=== PATIENT | female | born 1945 | race Caucasian/White ===

== ENCOUNTER → 2018-12-19 | Outpatient (CLI) | payer OTHER, MEDICARE ==
[~2018-12-19] VITALS: Ht 160 cm; Wt 58.5 kg
[~2018-12-19] MED LIST: ATORVASTATIN CA40 MG PO; B COMPLEX1 EACH PO; FISH OIL 1,001000 M2 PO; GLUCOSAMINE HC500 MG PO; LIPITOR 20 MG T20 M1 PO; MOBIC7.5 MG PO; NORVASC5 MG PO; ONE-A-DAY WOMENS PO; OSTEO BI-FLEX1 EAC1 PO; TUMS PO; TURMERIC500 M2 PO; VALACYCLOVIR500 MG PO; VITAMIN D-32000 UNIT PO; VITAMINC500 PO
--- NOTE | ~2018-12-19 | P ---
[facility] [place] [address] PROCEDURE REPORT Name: LONG CONCEPCION Room #: REG JACKSON Nair#: [id number] Admission: 12/19/18 ������������������ Attend Phys: Bipin Wellington Discharge: ������������������ Date of : 41 Report #: [id number] THIS REPORT FOR: //name// CC: Bipin Apple MD DATE OF SERVICE: 12/19/2018 PROCEDURE PERFORMED: Upper endoscopy with biopsies and esophageal dilation. HISTORY OF PRESENT ILLNESS: The patient is a 73-year-old female with recurrent dysphagia. Last upper endoscopy with dilation was performed by myself in 11/2015, which was helpful. She is beginning to have high dysphagia again. She also presents today for routine screening colonoscopy. She has a family history of colon cancer in her father. She does report heartburn at times, takes Tums on a p.r.n. basis. DESCRIPTION OF PROCEDURE: The risks and benefits of the procedure were explained to the patient, those risks including but not limited to bleeding, perforation and the risk of sedation. She understood these risks and gave informed consent. Sedation was given using propofol per anesthesia. Next, using a standard Olympus upper endoscope, the scope was placed in the patient's mouth and advanced under direct vision through the esophagus, stomach and into the second portion of the duodenum. The upper and mid esophagus was normal in appearance. In the distal esophagus at the GE junction, mild grade A erosive esophagitis was noted. The gastric fundus was normal. A mild gastritis was noted in the gastric body and antrum. Biopsies were obtained to rule out H. pylori. The pylorus was normal and patent. The duodenal bulb and first portion were normal. However, several superficial ulcers were noted in the second portion of the duodenum. No evidence of bleeding. The scope was then brought back up into the patient's stomach and a Savary guidewire was inserted through the scope, leaving the guidewire in place as the scope was then withdrawn. Next, a 48-Georgian Savary dilation of the esophagus was then performed without difficulty. The wire and dilator removed. The scope was reintroduced into the patient's stomach. There was no evidence of mucosal tear after dilation. The scope was then withdrawn and the procedure terminated. The patient tolerated the procedure well. IMPRESSION: 1. Grade A erosive esophagitis. 2. Mild gastritis. 3. Superficial duodenal ulcers. RECOMMENDATIONS: 1. Await biopsy results. [address] [address] PROCEDURE REPORT Name: LONG CONCEPCION Ewa Room #: REG CL Korey#: [id number] Admission: 12/19/18 ������������������ Attend Phys: Bipin Wellington Discharge: ������������������ Date of : 41 Report #: [id number] 2. Observe the patient post-dilation. 3. Would recommend daily PPI therapy. Thank you for allowing me to participate in her care. ��������������������������������������������� ���������������������������������������� By: ��������������������������������������������� 1209 [id number] Bipin Wall MD /kami
--- NOTE | ~2018-12-19 | P ---
[facility] [place] [address] PROCEDURE REPORT Name: LONG CONCEPCION [id number] Admission: 12/19/18 ������������������ Attend Phys: Bipin Wellington Discharge: ������������������ Date of : 41 Report #: [id number] THIS REPORT FOR: //name// CC: Bipin Apple MD DATE OF SERVICE: 12/19/2018 PROCEDURE PERFORMED: Colonoscopy. HISTORY OF PRESENT ILLNESS: The patient is a 73-year-old female here for routine followup colonoscopy screening. She denies any symptoms. She does have a family history of colon cancer in her father. DESCRIPTION OF PROCEDURE: The risks and benefits of the procedure were explained to the patient, those risks including but not limited to bleeding, perforation, and the risk of sedation. She understood these risks and gave informed consent. Sedation was given using propofol per Anesthesia. Next, a digital rectal exam was initially performed, which was normal. Next, using a standard Olympus colonoscope, the scope was placed in the patient's anus and advanced under direct vision to the cecum. The overall prep was excellent. The cecum and ileocecal valve were normal in appearance. The ascending, transverse and descending colon were normal. Multiple diverticula were noted in the sigmoid colon, no evidence of inflammation, otherwise normal. The rectal mucosa was normal. On retroflexion, no abnormalities were noted. The scope was then withdrawn and the procedure terminated. The patient tolerated the procedure well. IMPRESSION: 1. Sigmoid diverticulosis. 2. Otherwise, normal colonoscopy. RECOMMENDATIONS: Repeat colonoscopy in 5 years. Thank you for allowing me to participate in her care. ��������������������������������������������� ���������������������������������������� By: ��������������������������������������������� 1212 [id number] Biipn Wall MD /nt
--- NOTE | 2018-12-20 16:05 | PATH ---
[facility] [address] [place] [address] PATHOLOGY RPT PROCEDURE Name: MARITZA BENJAMIN Room #: REG [facility] Kirstie.#: [id number] ������������������ Admission: 12/19/18 ������������������ Date of : 41 Discharge: Report #: [id number] Path Case #: [id number] [facility] Accession Number: [id number] . 01 Material submitted: . stomach - BX GASTRITIS . 01 Clinical history: . Family history polyps, dysphagia Duodenal ulcers, dysphagia, gastritis, esophagitis, diverticulosis Rule H. pylori . 02 Diagnosis: Gastric mucosa, gastritis rule out H. pylori, endoscopic biopsy: - Mild reactive gastropathy. - Negative for intestinal metaplasia or atrophy. - Negative for Helicobacter pylori (properly controlled immunohistochemical stain performed). (IUV/db; 12/20/2018) LBQ/12/20/2018 . 02 Electronically signed: . Mechelle Santiago MD, Pathologist NPI- [id number] . 01 Gross description: . The specimen is received in formalin, labeled "Maritza Benjamin, BX gastritis" and consists of 5 fragments of pink-feliz tissue measuring between 0.1 x 0.1 cm and 0.7 x 0.3 x 0.1 cm. They are entirely submitted in A1. (SDY; 12/19/2018) SYU/SYU . 02 Pathologist provided ICD-10: K31.9 . 02 CPT . 831420, T84199 Specimen Comment: A courtesy copy of this report has been sent to Specimen Comment: [phone], . Specimen Comment: Report sent to / DR GIBSON Performed at: [address] [id number] MD Malcom Crespo MD Phone: [phone] Performed at: 02 [facility] [address] [place] [address] PATHOLOGY RPT PROCEDURE Name: MARITZA BENJAMIN Room #: REG [facility].#: [id number] ������������������ Admission: 12/19/18 ������������������ Date of : 41 Discharge: Report #: [id number] Path Case #: [id number] [address] [place] [id number] MD Mechelle Santiago MD Phone: [phone]
== END | disposition home or self-care (01) ==
LOC: GI 09:08
DX: Z12.11 Encounter for screening for malignant neoplasm of colon (principal); Z80.0 Family history of malignant neoplasm of digestive organs; K57.30 Diverticulosis of large intestine without perforation or abscess without bleeding; K31.9 Disease of stomach and duodenum, unspecified; K20.9 Esophagitis, unspecified; K26.9 Duodenal ulcer, unspecified as acute or chronic, without hemorrhage or perforation; R13.19 Other dysphagia; I10 Essential (primary) hypertension; E78.5 Hyperlipidemia, unspecified; K21.9 Gastro-esophageal reflux disease without esophagitis; Z98.41 Cataract extraction status, right eye; Z98.42 Cataract extraction status, left eye; Z87.891 Personal history of nicotine dependence; Z98.890 Other specified postprocedural states; Z79.899 Other long term (current) drug therapy
CPT/HCPCS: 62110; 62900